=== PATIENT | male | born 1940 | race Caucasian/White ===

== ENCOUNTER → 2017-10-28 | Outpatient (CLI) | payer MEDICARE ==
[~2017-10-28] MED LIST: CITRACAL; DOXY50CA2 PO; GLIM2TAB3 PO; HYDR-2132 PO; KRIL1CAP12 PO; METF-446 PO; METO50TA9 PO; RAMI5CAP10 PO; ROSU20TA PO; TRAM-355 PO; WARF2.5T85 PO; [UNRECOGNIZED DRUG - OTHER]
== END | disposition home or self-care (01) ==
LOC: OIH 11:26
PROVIDERS: ATTEND Internal Medicine
DX: J44.9 Chronic obstructive pulmonary disease, unspecified (principal)
CPT/HCPCS: 71046

== ENCOUNTER → 2019-07-29 | Outpatient (CLI) | payer MEDICARE | END | disposition home or self-care (01) | LOC: RAH 10:36 | PROVIDERS: ATTEND Internal Medicine | DX: I67.82 Cerebral ischemia (principal); G31.89 Other specified degenerative diseases of nervous system ==

== ENCOUNTER 2019-08-02 04:01 | Emergency (ER) | payer MEDICARE ==
[~2019-08-02 04:01] MED LIST changes: -GLIM2TAB3 PO; +GLIM2TAB30 PO; -ROSU20TA PO; +ROSU20TA23 PO
[2019-08-02] MEDS ORDERED: SODIUM CHLORIDE 0.9% 500ML 500 ML IV ONE (04:39)
[2019-08-02 04:44] LABS: BASOPHILS % (AUTO) 1.2 % (0.0-5.0); EOSINOPHILS % (AUTO) 5.2 % (0.0-8.0); HEMATOCRIT 37.5 % (42-54); MEAN CORPUSCULAR HEMOGLOBIN 31.4 pg (27.0-33.0); MEAN CORPUSCULAR HGB CONC 32.8 g/dL (32.0-36.0); MEAN CORPUSCULAR VOLUME 95.7 fL (79-99); MONOCYTES % (AUTO) 11.2 % (3.0-13.0); NEUTROPHILS % (AUTO) 67.2 % (40.0-77.0); PLATELET COUNT (AUTO) 237 K/uL (130-400); RED BLOOD CELL COUNT(AUTO) 3.92 MIL/uL (4.50-6.20); RED CELL DISTRIBUTION WIDTH 11.9 % (11.0-15.5)
[2019-08-02 05:03] LABS: CREATININE 2.3 mg/dL (0.5-1.5); POTASSIUM 3.8 mmol/L (3.5-5.1)
[2019-08-02 05:07] LABS: ALBUMIN 3.3 g/dL (3.5-5.0); BILIRUBIN,TOTAL 0.4 mg/dL (0.2-1.0)
[2019-08-02] MEDS ORDERED: LIDOCAINE 5% TOPICAL PATCH TP ONE (06:12)
[2019-08-02] MEDS ORDERED: KETOROLAC TROMETHAMINE 15MG/ML ONE (06:12)
== END 2019-08-02 07:51 | disposition home or self-care (01) ==
LOC: EDH 04:01
DX: S29.012A Strain of muscle and tendon of back wall of thorax, initial encounter (principal); S30.0XXA Contusion of lower back and pelvis, initial encounter; E11.9 Type 2 diabetes mellitus without complications; Z88.6 Allergy status to analgesic agent; Z79.899 Other long term (current) drug therapy; W18.39XA Other fall on same level, initial encounter; Y93.89 Activity, other specified; Y92.89 Other specified places as the place of occurrence of the external cause; Y99.8 Other external cause status
CPT/HCPCS: 36415; 70450; 72125; 72128; 72131; 74176; 80053; 82550; 83605; 84484; 85025; 93005; 96374; 99285; J1885; J7040